=== PATIENT | female | born 1980 | race American Indian/Alaskan Native ===

== ENCOUNTER 2016-10-07 07:19 | Emergency (ER) | payer OTHER ==
[2016-10-07 08:16] LABS: Basophils % (Auto) 0.8 % (0.0-1.8); Eosinophils % (Auto) 1.9 % (0.0-4.3); Hematocrit 39.1 % (30.3-42.9); Hemoglobin 13.3 gm/dl (10.1-14.3); Mean Corpuscular HGB Conc 34 % (30-34); Mean Corpuscular Hemoglobin 27 pg (28-32); Mean Corpuscular Volume 79 fl (79-97); Platelet Count 224 K/mm3 (140-440); Red Blood Count 4.96 M/mm3 (3.65-5.03); Red Cell Distribution Width 14.2 % (13.2-15.2); White Blood Count 4.9 K/mm3 (4.5-11.0)
[2016-10-07 08:29] LABS: Anion Gap 17 mmol/L; BUN/Creatinine Ratio 16.25; Blood Urea Nitrogen 13 mg/dL (7-17); Calcium 8.9 mg/dL (8.4-10.2); Carbon Dioxide 21 mmol/L (22-30); Chloride 101.4 mmol/L (98-107); Glucose 92 mg/dL (65-100); Potassium 4.1 mmol/L (3.6-5.0); Sodium 135 mmol/L (137-145)
--- NOTE | 2016-10-07 11:33 | Emergency Department Report ---
ED Chest Pain HPI - General Chief Complaint: Chest Pain Stated Complaint: CHEST PAIN Time Seen by Provider: 10/07/16 11:22 Source: patient Mode of arrival: Ambulatory Limitations: No Limitations - History of Present Illness Initial Comments: Patient describes soreness in the right anterior chest which she states does not radiate to her back although the triage note states some radiation. She states that she has not done any recent lifting. She denies cough. She states that she had some vague shortness of breath although at the same time her pulse oximetry was steady at 99-100%. She's had no leg pain or swelling. There's been no recent travel. She denies family history of CAD/VTE. The chest discomfort does not involve the left side nor the substernal area. It is an intermittent headache which is mild to moderate in intensity. It is not related to eating. She denies nausea or vomiting today although the triage note has a + in front of nausea. She is in absolutely no distress at the time of my encounter. MD Complaint: chest pain -: Sudden (states that she noticed it acutely yesterday) Onset: during rest Pain Location: right chest Pain Radiation: none Severity: mild, moderate Quality: aching Consistency: intermittent, now resolved Improves With: nothing Worsens With: nothing re: denies: vomting, diaphoresis, sense of impending doom Other Symptoms: denies: cough, fever, syncope Aspirin use within the Past 7 Days: (0) No - Related Data On Oral Contraceptives: Yes Previous Rx's Medication Instructions Recorded Last Taken Type Naproxen [Naprosyn] 375 mg PO BID PRN #10 tablet 10/07/16 Unknown Rx Allergies Allergy/AdvReac Type Severity Reaction Status Date / Time shrimp Allergy Hives Verified 10/07/16 07:33 ABRAHAM score - Abraham Score Age > 65: (0) No Aspirin use within the Past 7 Days: (0) No 3 or more CAD Risk Factors: (0) No 2 or more Angina events in past 24 hrs: (0) No Known CAD with more than 50% Stenosis: (0) No Elevated Cardiac Markers: (0) No ST Deviation Greater than 0.5mm: (0) No ABRAHAM Score: 0 ED Review of Systems ROS: Stated complaint: CHEST PAIN Other details as noted in HPI Constitutional: denies: chills, fever Eyes: denies: eye pain, eye discharge, vision change ENT: denies: ear pain, throat pain Respiratory: denies: cough, shortness of breath, wheezing Cardiovascular: chest pain. denies: palpitations Endocrine: no symptoms reported Gastrointestinal: denies: abdominal pain, nausea, diarrhea Genitourinary: denies: urgency, dysuria, discharge Musculoskeletal: denies: back pain, joint swelling, arthralgia Skin: denies: rash, lesions Neurological: denies: headache, weakness, paresthesias Psychiatric: denies: anxiety, depression Hematological/Lymphatic: denies: easy bleeding, easy bruising ED Past Medical Hx - Past Medical History Previous Medical History?: Yes Hx Asthma: Yes - Surgical History Past Surgical History?: Yes Additional Surgical History: x 1 - Social History Smoking Status: Never Smoker Substance Use Type: Alcohol - Medications Home Medications: Home Medications Medication Instructions Recorded Confirmed Last Taken Type Naproxen [Naprosyn] 375 mg PO BID PRN #10 tablet 10/07/16 Unknown Rx ED Physical Exam - General Limitations: No Limitations General appearance: alert, in no apparent distress - Head Head exam: Present: atraumatic, normocephalic - Eye Eye exam: Present: normal appearance. Absent: scleral icterus - ENT ENT exam: Present: normal exam, mucous membranes moist - Neck Neck exam: Present: normal inspection - Respiratory Respiratory exam: Present: normal lung sounds bilaterally. Absent: respiratory distress - Cardiovascular Cardiovascular Exam: Present: regular rate, normal rhythm. Absent: systolic murmur, diastolic murmur, rubs, gallop - GI/Abdominal GI/Abdominal exam: Present: soft, normal bowel sounds. Absent: distended, tenderness, guarding, rebound, rigid - Extremities Exam Extremities exam: Present: normal inspection - Back Exam Back exam: Present: normal inspection - Neurological Exam Neurological exam: Present: alert, oriented X3, CN II-XII intact. Absent: motor sensory deficit - Psychiatric Psychiatric exam: Present: normal affect, normal mood - Skin Skin exam: Present: warm, dry, intact, normal color. Absent: rash ED Course Vital Signs 10/07/16 10/07/16 10/07/16 07:33 11:26 11:30 Temperature 98.9 F Pulse Rate 69 60 Respiratory 16 14 Rate Blood Pressure 118/79 111/72 116/75 Blood Pressure [Left] O2 Sat by Pulse 100 100 100 Oximetry 10/07/16 10/07/16 10/07/16 11:41 11:51 12:00 Temperature Pulse Rate 61 54 L 61 Respiratory 12 13 28 H Rate Blood Pressure 116/75 110/66 111/74 Blood Pressure [Left] O2 Sat by Pulse 99 100 100 Oximetry 10/07/16 10/07/16 10/07/16 12:05 12:11 12:21 Temperature Pulse Rate 62 66 Respiratory 16 14 24 Rate Blood Pressure 111/74 126/71 Blood Pressure [Left] O2 Sat by Pulse 100 100 100 Oximetry 10/07/16 10/07/16 10/07/16 12:30 12:41 12:51 Temperature Pulse Rate 63 62 63 Respiratory 16 12 11 L Rate Blood Pressure 117/69 107/70 115/75 Blood Pressure 107/70 [Left] O2 Sat by Pulse 100 100 100 Oximetry 10/07/16 10/07/16 10/07/16 13:00 13:11 13:21 Temperature Pulse Rate 59 L 61 81 Respiratory 25 H 10 L 10 L Rate Blood Pressure 119/72 119/72 107/74 Blood Pressure [Left] O2 Sat by Pulse 100 100 100 Oximetry ED Medical Decision Making - Lab Data Result diagrams: 10/07/16 07:42 10/07/16 07:42 Laboratory Results - last 24 hr 10/07/16 10/07/16 10/07/16 07:42 07:42 07:42 WBC 4.9 RBC 4.96 Hgb 13.3 Hct 39.1 MCV 79 MCH 27 L MCHC 34 RDW 14.2 Plt Count 224 Lymph % (Auto) 26.9 [place] % (Auto) 9.5 H Eos % (Auto) 1.9 Baso % (Auto) 0.8 Lymph # 1.3 [place] # 0.5 Eos # 0.1 Baso # 0.0 Seg Neutrophils % 60.9 Seg Neutrophils # 3.0 Sodium 135 L Potassium 4.1 Chloride 101.4 Carbon Dioxide 21 L Anion Gap 17 BUN 13 Creatinine 0.8 Estimated GFR > 60 BUN/Creatinine Ratio 16.25 Glucose 92 Calcium 8.9 Troponin T < 0.010 HCG, Qual Negative 10/07/16 10:37 WBC RBC Hgb Hct MCV MCH MCHC RDW Plt Count Lymph % (Auto) [place] % (Auto) Eos % (Auto) Baso % (Auto) Lymph # [place] # Eos # Baso # Seg Neutrophils % Seg Neutrophils # Sodium Potassium Chloride Carbon Dioxide Anion Gap BUN Creatinine Estimated GFR BUN/Creatinine Ratio Glucose Calcium Troponin T < 0.010 HCG, Qual Laboratory Results - last 24 hr 10/07/16 10/07/16 10/07/16 07:42 07:42 07:42 WBC 4.9 RBC 4.96 Hgb 13.3 Hct 39.1 MCV 79 MCH 27 L MCHC 34 RDW 14.2 Plt Count 224 Lymph % (Auto) 26.9 [place] % (Auto) 9.5 H Eos % (Auto) 1.9 Baso % (Auto) 0.8 Lymph # 1.3 [place] # 0.5 Eos # 0.1 Baso # 0.0 Seg Neutrophils % 60.9 Seg Neutrophils # 3.0 PT INR APTT D-Dimer Sodium 135 L Potassium 4.1 Chloride 101.4 Carbon Dioxide 21 L Anion Gap 17 BUN 13 Creatinine 0.8 Estimated GFR > 60 BUN/Creatinine Ratio 16.25 Glucose 92 Calcium 8.9 Troponin T < 0.010 HCG, Qual Negative 10/07/16 10/07/16 10:37 12:21 WBC RBC Hgb Hct MCV MCH MCHC RDW Plt Count Lymph % (Auto) [place] % (Auto) Eos % (Auto) Baso % (Auto) Lymph # [place] # Eos # Baso # Seg Neutrophils % Seg Neutrophils # PT 14.0 INR 1.09 APTT 36.9 H D-Dimer < 135 Sodium Potassium Chloride Carbon Dioxide Anion Gap BUN Creatinine Estimated GFR BUN/Creatinine Ratio Glucose Calcium Troponin T < 0.010 HCG, Qual - EKG Data -: EKG Interpreted by Me EKG shows normal: sinus rhythm, axis, intervals, QRS complexes, ST-T waves Rate: normal - EKG Data Interpretation: other (slight sinus arrhythmia. RSR in V1. Nonspecific changes.) - Radiology Data Radiology results: report reviewed interpreted by me: normal Critical care attestation.: If time is entered above; I have spent that time in minutes in the direct care of this critically ill patient, excluding procedure time. ED Disposition Clinical Impression: Atypical chest pain Disposition: DISCHARGED TO HOME OR SELFCARE Is pt being admited?: No Does the pt Need Aspirin: No Condition: Stable Instructions: Chest Pain (ED) Additional Instructions: Return any acute change or prolonged or worsening chest pain. Return shortness of breath or other associated symptoms. Follow-up with a primary care provider. Prescriptions: Naproxen [Naprosyn] 375 mg PO BID PRN #10 tablet PRN Reason: pain Referrals: PRIMARY CARE, [Primary Care Provider] - 3-5 Days Time of Disposition: 13:45
--- NOTE | 2016-10-07 12:25 | XRay Report ---
CHEST ONE VIEW INDICATION: Chest pain. COMPARISON: None similar. FINDINGS: Portable, single, frontal chest radiograph demonstrates normal cardiomediastinal silhouette. Clear lungs. Unremarkable bones. Extrinsic EKG leads. CONCLUSION: No acute disease in the chest. Thank you for the opportunity to participate in this patient's care.
[2016-10-07 12:54] LABS: INR 1.09 (0.87-1.13)
[2016-10-07 12:55] LABS: Partial Thromboplastin Time 36.9 Sec. (24.2-36.6)
[2016-10-07 14:03] VITALS: BP 106/69
== END 2016-10-07 14:06 | disposition home or self-care (01) ==
LOC: ED 07:19
DX: R07.89 Other chest pain (principal); J45.909 Unspecified asthma, uncomplicated
CPT/HCPCS: 36415; 71010; 80048; 84484; 84703; 85025; 85379; 85610; 85730; 93005; 93010; 99285

== ENCOUNTER 2017-04-27 15:40 | Emergency (ER) | payer OTHER ==
[2017-04-27] MEDS ORDERED: ZOFRAN IV ONE (16:39)
[2017-04-27] MEDS ORDERED: DILAUDID IV ONE ×2 (16:39→18:29)
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
[2017-04-27 17:12] LABS: Basophils % (Auto) 0.7 % (0.0-1.8); Eosinophils % (Auto) 1.1 % (0.0-4.3); Hematocrit 39.4 % (30.3-42.9); Hemoglobin 13.4 gm/dl (10.1-14.3); Mean Corpuscular HGB Conc 34 % (30-34); Mean Corpuscular Hemoglobin 27 pg (28-32); Mean Corpuscular Volume 81 fl (79-97); Platelet Count 235 K/mm3 (140-440); Red Cell Distribution Width 14.6 % (13.2-15.2); White Blood Count 4.9 K/mm3 (4.5-11.0)
[2017-04-27] MEDS ORDERED: NACL 0.9% 1000 ML 1,000 ML IV ONE (17:18)
[2017-04-27 17:24] LABS: INR 1.04 (0.87-1.13)
[2017-04-27 17:25] LABS: Partial Thromboplastin Time 37.2 Sec. (24.2-36.6)
[2017-04-27 17:38] LABS: Alanine Aminotransferase 8 units/L (7-56); Albumin/Globulin Ratio 1.4 %; Alkaline Phosphatase 53 units/L (35-129); Anion Gap 17 mmol/L; BUN/Creatinine Ratio 14; Blood Urea Nitrogen 10 mg/dL (7-17); Calcium 9.1 mg/dL (8.4-10.2); Carbon Dioxide 25 mmol/L (22-30); Chloride 102.7 mmol/L (98-107); Glucose 87 mg/dL (65-100); Potassium 4.2 mmol/L (3.6-5.0); Sodium 140 mmol/L (137-145); Total Protein 6.9 g/dL (6.3-8.2)
[2017-04-27] MEDS ORDERED: NACL ONE (18:44)
[2017-04-27] MEDS ORDERED: BENADRYL IV ONE (18:55)
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
[2017-04-27] MEDS ORDERED: TYLENOL PO ONE (20:55)
[2017-04-27 22:10] VITALS: BP 140/80
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
== END 2017-04-27 22:09 | disposition home or self-care (01) ==
LOC: ED 15:40
DX: S60.212A Contusion of left wrist, initial encounter (principal); S39.91XA Unspecified injury of abdomen, initial encounter; J45.909 Unspecified asthma, uncomplicated; V89.2XXA Person injured in unspecified motor-vehicle accident, traffic, initial encounter; W22.10XA Striking against or struck by unspecified automobile airbag, initial encounter; Y93.89 Activity, other specified; Y99.8 Other external cause status; Y92.89 Other specified places as the place of occurrence of the external cause
CPT/HCPCS: 36415; 70450; 72125; 73100; 74177; 80053; 84703; 85025; 85610; 85730; 86850; 86900; 86901; 96361; 96374; 96375; 96376; 99285; J1170; J1200; J2405; J2930; J7030; Q9967